=== PATIENT | female | born 1950 | race Caucasian/White ===

== ENCOUNTER → 2017-04-04 | Outpatient (CLI) | payer OTHER | LOC: LABMALL 14:52 | DX: M18.11 Unilateral primary osteoarthritis of first carpometacarpal joint, right hand (principal) ==

== ENCOUNTER → 2017-08-14 | Outpatient (CLI) | payer OTHER ==
[~2017-08-14] MED LIST: ALLEGRA ALLERG180 MG PO; AMBIEN 5 MG TABL5 M1 PO; ASPIR 8181 MG PO; B COMPLEX1 EACH PO; CALCIUM 500 +1 EAC5 PO; CO Q-10100 MG PO; COZAAR 50 MG TA50 M2 PO; CYMBALTA60 MG PO; FLAX SEED OIL1000 MG PO; FLUTICASONE PRO16 GM NASAL; HAIR, SKIN & N1 EAC3 PO; NEURONTIN 300300 M1 PO; OMEPRAZOLE 20 M20 M1 PO; OXYCODONE-ACET1 EACH PO; ROSUVASTATIN CA20 MG PO; SYSTANE 0.3-0.1 EACH OP; VITAMIN B-12500 MCG PO; VITAMIN E400 UNI7 PO
== END ==
LOC: NUC 11:57
DX: M47.896 Other spondylosis, lumbar region (principal); M25.562 Pain in left knee; Z96.652 Presence of left artificial knee joint